=== PATIENT | male | born 1985 ===

== ENCOUNTER 2021-07-09 03:04 | Emergency (ER) | payer BC ==
[~2021-07-09] VITALS: Ht 7.6 cm; Wt 86.4 kg
[2021-07-09 03:11] VITALS: TEMP 97.7
[2021-07-09 05:51] VITALS: BP 112/66; PULSE 78
== END 2021-07-09 05:51 | disposition home or self-care (01) ==
LOC: COL.ER 03:04
DX: S01.01XA Laceration without foreign body of scalp, initial encounter (principal); S01.81XA Laceration without foreign body of other part of head, initial encounter; F17.220 Nicotine dependence, chewing tobacco, uncomplicated; Y04.8XXA Assault by other bodily force, initial encounter